=== PATIENT | male | born 1980 | race Caucasian/White ===

== ENCOUNTER → 2017-07-14 | Outpatient (CLI) | payer BC ==
--- NOTE | 2017-07-14 17:57 | DIAGNOSTIC IMAGING REPORT ---
R LOWER EXT NONJOINT W/O HISTORY: 37 years-old Male MID FOOT PAIN,5TH METATARSAL FX history of right fifth metatarsal fracture with persistent pain and swelling COMPARISON: None available TECHNIQUE: Multiplanar multisequence MRI of the right forefoot was obtained without contrast. FINDINGS: The large field view director of primary localizer images demonstrate no gross abnormality. Healing subacute appearing nondisplaced transverse fracture involves the mid diaphyseal fifth metatarsal nicely seen on image 19 series 10 and 11. Moderate to extensive associated bone marrow edema noted within this distribution with moderate periosteal edema and surrounding healing callus formation. Mild associated soft tissue edema is also present. No additional fracture or dislocation. No additional significant bone marrow edema identified. Mild degenerative changes with subcortical cysts seen within the first MTP joint with mild marginal spurring involving the hallux sesamoids with the first metatarsal head. There is moderate subcutaneous edema about the forefoot, most pronounced dorsolaterally. The dorsal and interosseous bands of the Lisfranc ligament are identified and are intact. Imaged flexor and extensor tendons appear intact. No evidence of perineural fibrosis (Hardy neuroma) or definite intermetatarsal bursitis. Plantar plates appear intact. IMPRESSION: 1. Healing subacute appearing nondisplaced transverse fracture involves the mid diaphyseal fifth metatarsal with moderate to extensive bone marrow edema, moderate periosteal and surrounding soft tissue edema, likely reactive. 2. Moderate subcutaneous edema about the forefoot, greatest dorsally laterally. 3. Mild degenerative changes of the first MTP joint. The above report was generated using voice recognition software. It may contain grammatical, syntax or spelling errors. Electronically signed by: Gopal Navarro M.D. 07/14/2017 5:55 PM Dictated Date/Time: 07/14/2017 5:34 PM
== END | disposition home or self-care (01) ==
LOC: C.MRI 15:41
PROVIDERS: ATTEND Family Medicine
DX: S92.301D Fracture of unspecified metatarsal bone(s), right foot, subsequent encounter for fracture with routine healing (principal); X58.XXXD Exposure to other specified factors, subsequent encounter; M79.89 Other specified soft tissue disorders

== ENCOUNTER → 2017-11-03 | Day surgery (SDC) | payer BC ==
[2017-10-27 12:04] VITALS: Ht 188 cm; Wt 90.9 kg
[~2017-11-03] VITALS: Ht 188 cm; Wt 90.9 kg
[~2017-11-03] MED LIST: ATROPINE SULFATE 0.1 MG/ML 5ML SYR IV PRN; BUPIVACAINE 0.5 % 5 MG/1 ML MPF 30ML VIAL ONE; BUPIVACAINE/EPINEPHRINE 0.5% MPF 1:200,000 30 ML VIAL ONE; CEFAZOLIN 2000MG IV PUSH 15 ML IV SCH; CLINDAMYCIN IV 300 MG in DEXTROSE 5% 50ML 50 ML IV SCH; CLINDAMYCIN PHOS 150 MG/ML 2 ML VIAL ONE; DEXAMETHASONE SOD INJ 4 MG/ML VIAL ONE; EpHEDrine SULFATE 50MG/5ML SYR ONE; EpHEDrine SULFATE INJ 50 MG/ML AMP IV PRN; FENTANYL CITRATE INJ 50 MCG/1 ML 2 ML VIAL ONE; FINA1TAB3 PO; LACTATED RINGER'S 1000ML 1,000 ML IV SCH; LIDOCAINE HCL 2% 2 ML VIAL (20MG/ML) ONE; MIDAZOLAM HCL 1 MG/ML 2ML VIAL ONE; NURSING VERBAL MED ORDER ONE; ONDANSETRON INJ 2 MG/ML 2 ML VIAL ONE; OXYC-57 PO; OXYCODONE/ACETAMINOPHEN 5-325 TAB PO PRN; PHENYLEPHRINE HCL INJ 10 MG/ML VIAL ONE; PROPOFOL IV EMULSION 10 MG/ML 20 ML VIAL IV ONE; SODIUM CHLORIDE 0.9% 1000ML 1,000 ML IV SCH; [UNRECOGNIZED DRUG - REMARK] SCH
--- NOTE | 2017-11-03 09:38 | History & Physical Bridge - [place] ---
H&P Re-Evaluation Bridge Note: I have examined the patient, reviewed the History & Physical and in the interval since the performance of the History & Physical I have noted the following changes of clinical significance: No changes noted
--- NOTE | 2017-11-03 11:12 | Discharge Instructions-SurgCtr ---
Discharge Instructions Date of Service Nov 03, 2017. 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 Post Anesthesia Instructions: If you have had General Anesthesia or IV Sedation: * Do not drive today. * Resume driving when surgeon permits. * Do not make important decisions or sign legal documents today. * Call surgeon for: 1. Temperature elevations greater than 101 degrees F. 2. Uncontrollable pain. 3. Excessive bleeding. 4. Persistent nausea and vomiting. 5. Medication intolerance (nausea, vomiting or rash). * For nausea and vomiting use only clear liquids such as: tea, soda, bouillon until nausea subsides, then gradually increase diet as tolerated. * If you have any concerns or questions, call your surgeon's office. If physician is unavailable and it is an emergency, call 911 or go to the nearest emergency room. . Instructions / Follow-Up Instructions / Follow-Up MEDICATIONS: * Resume previous medications unless instructed otherwise by your surgeon. * Always take pain medication on a full stomach or with food to avoid upset stomach. * Do not drink alcohol or drive while taking narcotics. * Tylenol may be taken if narcotic not needed. Avoid NSAIDs SPECIAL CARE INSTRUCTIONS: __ None _x_ Keep extremity elevated and iced x 48 hours; apply ice 20-30 minutes 8-10 times/day. May remove at night. _x_ Crutches __ May discard when able __ Brace/Post-op shoe __ 24 hrs/day __ Remove at night _x_ Dressing _x_ Maintain until seen in office, may shower with plastic over site __ Remove dressings in 24-48 hours and then may shower __ Cover incisions with band-aids after showering __ Do not remove steri-strips Call physician if chills or temperature rises above 102 degrees or pain unrelieved by prescribed pain medications. Office [phone] follow up in 2 weeks Diet Recommendations Home Diet: resume previous diet Procedures Procedures Performed: Right 5th Metatarsal Cannulated Screw Fixation Pending Studies Studies pending at discharge: no Medical Emergencies . Who to Call and When: Medical Emergencies: If at any time you feel your situation is an emergency, please call 911 immediately. . Non-Emergent Contact Non-Emergency issues call your: Surgeon . . "Provider Documentation" section prepared by Matthew Sargent. .
--- NOTE | 2017-11-03 11:13 | [facility] Post Operative Brief Note ---
Immediate Operative Summary Operative Date Nov 03, 2017. Pre-Operative Diagnosis Right 5th Matatarsal Bone / Abernathy Fracture Delayed Union Post-Operative Diagnosis Same Procedure(s) Performed Right 5th Metatarsal Cannulated Screw Fixation Surgeon Dr. Apodaca Enterer Surgeon(s) Deepak Sargent PA-C Estimated Blood Loss MINIMAL Findings Consistent with Post-Op Diagnosis Specimens none Anesthesia Type General Complication(s) none Disposition Accompanied Pt To Recovery: yes Disposition: Recovery Room / PACU
[2017-11-03 11:42] VITALS: TEMP 36.7
[2017-11-03 12:12] VITALS: BP 124/75; PULSE 91; O2SAT 100
--- NOTE | 2017-11-03 12:19 | Anesthesia Progress Nt - [facility] ---
Anesthesia Post Op Note Date & Time Nov 03, 2017 at 12:19 Vital Signs Pain Intensity: 0 Vital Signs Past 12 Hours Date Time Temp Pulse Resp B/P (MAP) Pulse Ox O2 Delivery O2 Flow Rate FiO2 11/03/17 12:12 91 20 124/75 (91) 100 Room Air 11/03/17 11:42 36.7 83 20 131/80 (97) 99 Room Air 11/03/17 11:37 36.8 93 14 11/03/17 11:37 95 14 99 11/03/17 11:36 121/62 11/03/17 11:32 86 14 98 11/03/17 11:32 86 14 11/03/17 11:30 131/66 11/03/17 11:27 84 3 100 11/03/17 11:27 83 3 11/03/17 11:25 126/73 11/03/17 11:22 92 12 100 11/03/17 11:22 93 12 11/03/17 11:20 123/72 11/03/17 11:17 78 8 11/03/17 11:17 80 8 100 11/03/17 11:15 132/62 11/03/17 11:12 77 2 11/03/17 11:12 77 2 100 11/03/17 11:10 136/62 11/03/17 11:08 129/72 11/03/17 11:07 36.7 87 12 129/72 100 Mask 6 11/03/17 09:15 37.4 93 22 113/67 (82) 100 Room Air Notes Mental Status: alert / awake / arousable, participated in evaluation Pt Amnestic to Procedure: Yes Nausea / Vomiting: adequately controlled Pain: adequately controlled Airway Patency, RR, SpO2: stable & adequate BP & HR: stable & adequate Hydration State: stable & adequate Anesthetic Complications: no major complications apparent
--- NOTE | 2017-11-03 12:22 | OPERATIVE REPORT ---
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 POSTOPERATIVE DIAGNOSIS: Same. PROCEDURE PERFORMED: Cannulated screw fixation of right fifth metatarsal base delayed union/nonunion. COMPLICATIONS: None. ESTIMATED BLOOD LOSS: Minimal. TOURNIQUET TIME: 25 minutes at 300 mmHg. ANESTHESIA: General. SPECIMENS: None. OPERATIVE INDICATIONS: The patient is a 37-year-old male who injured his right foot about 5 months ago. He fell down some steps. He was treated elsewhere for quite some time with on and off weightbearing in a boot and protected boot and has had no signs of healing. He has developed some RSD type symptoms. X-ray showed minimal of any healing. The patient would like to proceed with surgical treatment. OPERATIVE IMPLANTS: Operative implants consisted of Synthes 4.5 mm partially threaded cannulated screw with 64 mm in length. OPERATIVE PROCEDURE: The patient taken to the operating room, identified and placed on the operating table in supine position. All contact areas were appropriately padded. IV antibiotics were provided by anesthesia team. A general anesthetic was implemented by anesthesia team. A right thigh tourniquet was then placed. The patient was then placed in a semilateral position using the bess bag positioner with the left side down, right side up. The right foot and leg were then prepped and draped in usual sterile fashion. X-ray was brought in. I verified the location of the fracture and the trajectory of the screw path. We spent quite a bit of time doing this. Once I felt I had identified the perfect path, the right leg was elevated and exsanguinated with the use of Esmarch. The tourniquet was placed at 300 mmHg. About a 3 cm incision was made just proximal to the fifth metatarsal. Blunt dissection was carried through the subcutaneous tissues down to the bone. I then took a guidewire and under fluoroscopic guidance, I placed it in the ideal position that will fit across the fracture site and down the IM canal what is called the "high lateral" position. I advanced this down the intramedullary canal. I measured for length. It was a little difficult to determine how long it would need to be as the fracture was fairly distal and I did not want to run in above the bone. Therefore, I over reamed this with a 3.2 mm drill bit. I passed this over the fracture site several times in reverse to try and get to stimulate additional healing. I was initially planned on using a malleolar screw, but on doing this under fluoroscopy, the threads would not cross the fracture site. Therefore, we elected to place a partially threaded cannulated cancellous screw. A 64 mm screw was selected. I placed this over the guidewire. I got excellent purchase and distal fixation. It did seem to close down the fracture site. The guidewire was then removed. Some final x-rays were obtained. The wound was once again irrigated. I injected locally with about 20 mL of 0.5% Marcaine with epinephrine. The tourniquet was then let down for a tourniquet time of 45 minutes. The wound was once again irrigated. The subcutaneous tissue was then closed with 2-0 Dexon suture in a buried interrupted fashion and the skin was then closed with 4-0 nylon suture in a horizontal mattress fashion. The foot was then cleaned and dried and a sterile dressing of Xeroform, 4 x 4's, sterile cast padding, and a well-padded posterior and stirrup splint were applied. The patient then brought out of general anesthesia and transferred to the recovery room in stable condition. The patient tolerated with no complication. All needle and sponge counts were correct at the end of the operation. I attest to the content of the Intraoperative Record and any orders documented therein. Any exception s are noted below.
--- NOTE | 2017-11-03 14:06 | DIAGNOSTIC IMAGING REPORT ---
SURGICNTR FOOT COMP MIN 3 VIEW CLINICAL HISTORY: 37 years-old Male presenting with RIGHT 5TH METATARSAL FIXATION. TECHNIQUE: 3 fluoroscopic image(s) recorded as part of an intraoperative procedure. COMPARISON: Plain radiograph from 10/27/2017. FINDINGS/IMPRESSION: Leg screw fixation across the mildly comminuted fracture of the proximal to mid diaphysis of the fifth metatarsal. Normal anatomic alignment. Please see surgical report for further details. Fluoroscopy dosage (mGy): 4.82. Fluoroscopy time: 82.4 seconds. Number of fluoroscopic spot images: 0. Electronically signed by: Eric Norris M.D. 11/03/2017 2:05 PM Dictated Date/Time: 11/03/2017 2:04 PM
== END | disposition home or self-care (01) ==
LOC: X.SURG 08:52
PROVIDERS: ATTEND Orthopaedic Surgery Sports Medicine
DX: S92.351K Displaced fracture of fifth metatarsal bone, right foot, subsequent encounter for fracture with nonunion (principal); W10.9XXD Fall (on) (from) unspecified stairs and steps, subsequent encounter; K21.9 Gastro-esophageal reflux disease without esophagitis; Z88.0 Allergy status to penicillin